=== PATIENT | male | born 1995 | race Caucasian/White ===

== ENCOUNTER 2017-02-03 22:14 | Emergency (ER) | payer SELFPAY | END 2017-02-03 22:20 | disposition left against medical advice (07) | LOC: ER 22:14 | DX: Z53.21 Procedure and treatment not carried out due to patient leaving prior to being seen by health care provider (principal) ==

== ENCOUNTER 2017-04-06 21:16 | Emergency (ER) | payer OTHER | END 2017-04-07 00:33 | disposition home or self-care (01) | LOC: ER 21:16 | DX: S93.402A Sprain of unspecified ligament of left ankle, initial encounter (principal); R20.0 Anesthesia of skin; Y93.67 Activity, basketball ==